=== PATIENT | female | born 1965 | race Caucasian/White ===

== ENCOUNTER 2017-06-10 09:22 | Day surgery (SDC) | payer BC ==
[2017-05-30 08:06] VITALS: BMI 32.1
[2017-06-10] MEDS ORDERED: Lactated Ringer's 1,000 ML IV ONE ×2 (11:17)
[2017-06-10] MEDS ORDERED: Propofol 10 mg/ml Inj (20 ML) ONE (11:49)
[2017-06-10] MEDS ORDERED: Midazolam 2 MG/2 ML VIAL ONE (11:49)
[2017-06-10 13:21] VITALS: O2SAT 100
--- NOTE | 2017-06-10 13:41 | PCM.SURG1 ---
Surgeon's Initial Post Op Note - Surgeon's Notes Surgeon: Dr. Sinclair Equine Internship: None Type of Anesthesia: General LMA Anesthesia Administered By: Dr. Garcia Pre-Operative Diagnosis: 52 yo Postmenopausal bleeding Operative Findings: AV UTERUS 8 Post-Operative Diagnosis: Same as above Operation Performed: Hysteroscopy D and C , attempted myosure Specimen/Specimens Removed: emc,ecc Estimated Blood Loss: EBL {In ML}: 10 Blood Products Given: N/A Drains Used: No Drains Post-Op Condition: Good Date of Surgery/Procedure: 06/10/17 Time of Surgery/Procedure: 13:39
[2017-06-10 15:05] VITALS: BP 101/59; PULSE 76; RESP 18; TEMP 98
--- NOTE | 2017-06-10 21:23 | OP ---
PROCEDURE DATE: 06/10/2017 PREOPERATIVE DIAGNOSIS: This is a 52-year-old female with postmenopausal bleeding. POSTOPERATIVE DIAGNOSIS: This is a 52-year-old female with postmenopausal bleeding. PROCEDURE: Hysteroscopy, dilatation and curettage, attempted MyoSure. SURGEON: Shannon Sinclair MD TYPE OF ANESTHESIA: General LMA. FINDINGS: An anteverted uterus of approximately 8 weeks gestation. COMPLICATIONS: None. ESTIMATED BLOOD LOSS: 5 mL. : 100 mL. SPECIMEN: EMC, ECC. DESCRIPTION OF PROCEDURE: The patient was informed of the risk factors, benefits, and alternative of the procedure. Risks factors included infection, bleeding, damage to the surrounding organs or tissues, complication from anesthesia and possible . After informed consent was obtained, all questions were answered. She was then taken to the operating room, prepped and draped in normal sterile fashion, placed in dorsal lithotomy position. A weighted speculum was placed into the vagina. The anterior lip of the cervix was grasped with a single-toothed tenaculum. The uterus was gently sounded to approximately 10 cm. Upon complete uterine dilation, the scope was then placed. A complete surveillance of the uterine cavity was then performed. It was noted that the MyoSure was attempted, but unsuccessful in that particular entrance, a surveillance of the cavity was then performed. The scope was then removed and a fractional D and C was then performed. EMC and ECC were submitted to Pathology. Upon completion, all instruments were removed from the vagina. Instrument and lap count were correct x2. The patient was then taken to recovery room in stable condition. Shannon Sinclair MD
== END 2017-06-10 15:36 | disposition home or self-care (01) ==
LOC: C.SDS 09:22
PROVIDERS: ATTEND Obstetrics & Gynecology
DX: N95.0 Postmenopausal bleeding (principal); D25.9 Leiomyoma of uterus, unspecified
CPT/HCPCS: 58558; 88305; J1100; J1885; J2001; J2250; J2405; J2704; J3010; J7120

== ENCOUNTER 2018-07-10 13:43 | Outpatient (CLI) | payer BC | END 2018-07-10 13:44 | disposition home or self-care (01) | LOC: C.MAMMO 13:43 ==